=== PATIENT | male | born 1990 | race Caucasian/White ===

== ENCOUNTER 2020-09-25 15:44 | Emergency (ER) | payer OTHER ==
[~2020-09-25] VITALS: Ht 180.3 cm; Wt 111.6 kg
[2020-09-25 15:59] VITALS: Ht 180.3 cm; Wt 111.6 kg
[2020-09-25 17:04] VITALS: BP 136/78
== END 2020-09-25 17:04 | disposition home or self-care (01) ==
LOC: ED 15:44
DX: S66.911A Strain of unspecified muscle, fascia and tendon at wrist and hand level, right hand, initial encounter (principal); S50.01XA Contusion of right elbow, initial encounter; W22.8XXA Striking against or struck by other objects, initial encounter; Y93.89 Activity, other specified; Y92.89 Other specified places as the place of occurrence of the external cause; Y99.8 Other external cause status